=== PATIENT | male | born 1945 | race Hispanic/Latino ===

== ENCOUNTER 2020-09-08 13:50 | Outpatient (CLI) | payer MEDICARE ==
--- NOTE | 2020-09-08 14:32 | ULT ---
Carotid arterial Doppler ultrasound: 09/08/2020 COMPARISON: None HISTORY: Right arm numbness TECHNIQUE: Multiplanar grayscale sonographic imaging of the arterial structures of the neck obtained with Doppler interrogation including color flow and spectral analysis FINDINGS: Antegrade blood flow and normal arterial waveforms are documented within the carotid and th e vertebral system bilaterally. There is noncalcified plaque within the proximal left CCA. Peak systolic velocity (centimeters per second) is as follows: Right common carotid artery 106 Right internal carotid artery 83 Right external carotid artery 87 Left common carotid artery 101 Right internal carotid artery 83 Right external carotid artery 171 The ICA/CCA ratio is 0.8 bilaterally. IMPRESSION: No hemodynamically significant stenosis involving the common or internal carotid artery o n either side on the basis of velocity criteria.
== END 2020-09-08 13:51 | disposition home or self-care (01) ==
LOC: BICULT 13:50
PROVIDERS: ATTEND Family Medicine
DX: G45.9 Transient cerebral ischemic attack, unspecified (principal)
CPT/HCPCS: 93880

== ENCOUNTER 2023-11-07 10:13 | Outpatient (CLI) | payer MEDICARE | END 2023-11-07 10:14 | disposition home or self-care (01) | LOC: BICMRI 10:13 | PROVIDERS: ATTEND Family Medicine | DX: L97.322 Non-pressure chronic ulcer of left ankle with fat layer exposed (principal) ==